=== PATIENT | male | born 1960 | race Caucasian/White ===

== ENCOUNTER 2017-12-15 07:00 | Day surgery (SDC) | payer BC ==
[2017-12-15] MEDS: TROPICAMIDE 1% 3 ML OPH OPER (08:26)
[2017-12-15] MEDS: PHENYLephrine 2.5% 15 ML OPH OPER (08:26)
[2017-12-15] MEDS ORDERED: ACETAMINOPHEN 500 MG TAB (08:29)
[2017-12-15] MEDS ORDERED: BALANCED SALT SOLN OPH IRRIG 500 ML, EPINEPHrine 0.1 MG, GENTAMICIN 4 MG, VANCOMYCIN 10 MG IRR ×2 (08:30→09:00)
[2017-12-15] MEDS ORDERED: LIDOCAINE 4% (MPF) 5 ML INJ INJ (08:30)
[2017-12-15] MEDS ORDERED: TETRACAINE 0.5% 4 ML OPH OPER (08:30)
[2017-12-15] MEDS: TETRACAINE 0.5% 4 ML OPH OPER (08:33)
[2017-12-15] MEDS: ACETAMINOPHEN 500 MG TAB PO (08:38)
[2017-12-15] MEDS ORDERED: TRYPAN BLUE 0.5 ML SYG IO (08:40)
[2017-12-15] MEDS ORDERED: ACETAZOLAMIDE 250 MG TAB PO (09:00)
[2017-12-15] MEDS ORDERED: FENTAnyl 50 MCG/ML VIAL (09:44)
[2017-12-15] MEDS ORDERED: MIDAZOLAM 1 MG/ML 2 ML INJ (09:44)
[2017-12-15] MEDS ORDERED: PROPOFOL 20 ML (09:44)
[2017-12-15] MEDS ORDERED: MEPERIDINE 25 MG INJ IV (10:00)
[2017-12-15] MEDS ORDERED: DIPHENHYDRAMINE 50 MG INJ IV (10:00)
[2017-12-15] MEDS ORDERED: MIDAZOLAM 1 MG/ML 2 ML INJ IV (10:00)
[2017-12-15] MEDS ORDERED: ONDANSETRON 4 MG INJ IV (10:00)
[2017-12-15] MEDS ORDERED: METOCLOPRAMIDE 10 MG INJ IV (10:00)
[2017-12-15] MEDS ORDERED: hydrALAzine 20 MG INJ IV (10:00)
[2017-12-15] MEDS ORDERED: OXYCODONE/ACETAMINOPHEN (5/325) TAB PO ×2 (10:00)
[2017-12-15] MEDS ORDERED: FENTAnyl 50 MCG/ML VIAL IV ×3 (10:00)
[2017-12-15] MEDS ORDERED: LABETALOL HCL 20MG INJ IV (10:00)
[2017-12-15] MEDS ORDERED: EPHEDrine SULFATE 50 MG/5 ML SYG IV (10:00)
[2017-12-15] MEDS ORDERED: TOBRAMYCIN 0.3% 5 ML OPH (10:01)
[2017-12-15] MEDS ORDERED: LIDOCAINE 4% (MPF) 5 ML INJ (10:01)
[2017-12-15] MEDS ORDERED: EPINEPHrine 1 MG INJ (10:34)
== END 2017-12-15 12:23 | disposition home or self-care (01) ==
LOC: SDS 07:00
DX: H25.12 Age-related nuclear cataract, left eye (principal); I10 Essential (primary) hypertension; F17.200 Nicotine dependence, unspecified, uncomplicated
CPT/HCPCS: 66984

== ENCOUNTER 2018-06-30 07:24 | Day surgery (SDC) | payer BC ==
[~2018-06-30 07:24] MED LIST: BALANCED SALT SOLN OPH IRRIG 500 ML, EPINEPHrine 0.1 MG, GENTAMICIN 4 MG, VANCOMYCIN 10 MG IRR; NEOMYC/POLYMYX/DEXAM 3.5GM OPH OINT RIGHT EYE
[2018-06-30] MEDS: PHENYLephrine 2.5% 15 ML OPH OPER (08:19)
[2018-06-30] MEDS: TETRACAINE 0.5% 4 ML OPH OPER (08:19)
[2018-06-30] MEDS: TROPICAMIDE 1% 3 ML OPH OPER (08:19)
[2018-06-30] MEDS: ACETAMINOPHEN 500 MG TAB PO (08:21)
[2018-06-30] MEDS: LIDOCAINE 3.5% GEL TUBE OPER (08:36)
[2018-06-30] MEDS ORDERED: LIDOCAINE 4% (MPF) 5 ML INJ (08:42)
[2018-06-30] MEDS ORDERED: OXYCODONE/ACETAMINOPHEN (5/325) TAB PO (09:00)
[2018-06-30] MEDS ORDERED: ONDANSETRON 4 MG INJ IV (09:00)
[2018-06-30] MEDS ORDERED: FENTAnyl 50 MCG/ML VIAL IV (09:00)
[2018-06-30] MEDS ORDERED: MEPERIDINE 25 MG INJ IV (09:00)
[2018-06-30] MEDS ORDERED: LABETALOL HCL 20MG INJ IV (09:00)
[2018-06-30] MEDS ORDERED: hydrALAzine 20 MG INJ IV (09:00)
[2018-06-30] MEDS ORDERED: HYDROmorphONE 1 MG/5 ML IV SYRINGE IV (09:00)
[2018-06-30] MEDS ORDERED: DIPHENHYDRAMINE 50 MG INJ IV (09:00)
[2018-06-30] MEDS ORDERED: PROCHLORPERAZINE 10 MG INJ IV (09:00)
[2018-06-30] MEDS ORDERED: MIDAZOLAM 1 MG/ML 2 ML INJ (09:07)
[2018-06-30] MEDS ORDERED: FENTAnyl 50 MCG/ML VIAL (09:07)
[2018-06-30] MEDS ORDERED: PROPOFOL 20 ML ×4 (09:07→10:07)
[2018-06-30] MEDS: LIDOCAINE 4% (MPF) 5 ML INJ INJ (09:34)
[2018-06-30] MEDS: TOBRAMYCIN/DEXAMETH 3.5 GM OPH OINT (09:35)
== END 2018-06-30 11:30 | disposition home or self-care (01) ==
LOC: SDS 07:24
DX: H26.8 Other specified cataract (principal); I10 Essential (primary) hypertension
CPT/HCPCS: 66984